=== PATIENT | male | born 1990 | race Caucasian/White ===

== ENCOUNTER 2019-04-07 18:12 | Emergency (ER) | payer BC ==
[~2019-04-07] VITALS: Ht 180.3 cm; Wt 86.2 kg
[2019-04-07 18:52] VITALS: BP 113/65; Ht 180.3 cm; Wt 86.2 kg
== END 2019-04-07 22:35 | disposition home or self-care (01) ==
LOC: ED 18:12
DX: M79.674 Pain in right toe(s) (principal); J45.909 Unspecified asthma, uncomplicated
CPT/HCPCS: 36415; J1885; Q0092